=== PATIENT | female | born 1945 | race Asian ===

== ENCOUNTER 2021-02-20 19:21 | Inpatient (IN) | payer OTHER, SELFPAY ==
[~2021-02-20] VITALS: Ht 149.9 cm; Wt 44.6 kg
[2021-02-20 19:25] VITALS: BP_SYST 128
[2021-02-20 20:25] LABS: BASOPHILS % (AUTO) 0.9 % (0.0-2.0); EOSINOPHILS # (AUTO) 0.3 K/uL (0.0-0.4); EOSINOPHILS % (AUTO) 7.4 % (0.0-4.0); HEMOGLOBIN 11.6 g/dL (12.0-16.0); LYMPHOCYTES # (AUTO) 0.7 K/uL (1.0-5.5); LYMPHOCYTES % (AUTO) 16.5 % (20.5-51.5); MEAN CORPUSCULAR HEMOGLOBIN 31 pg (27-31); MEAN CORPUSCULAR HGB CONC 35 % (32-36); MEAN CORPUSCULAR VOLUME 87 fL (79.0-98.0); MONOCYTES # (AUTO) 0.5 K/uL (0.0-1.0); MONOCYTES % (AUTO) 12.4 % (1.7-9.3); NEUTROPHILS # (AUTO) 2.6 K/uL (1.8-7.7); NEUTROPHILS % (AUTO) 62.8 % (40.0-70.0); PLATELET COUNT (AUTO) 360 K/uL (130-430); RED BLOOD CELL COUNT(AUTO) 3.79 MIL/uL (4.2-6.2); RED CELL DISTRIBUTION WIDTH 12.8 % (9.0-15.0); WHITE BLOOD COUNT (AUTO) 4.2 K/uL (4.8-10.8)
[2021-02-20 20:36] LABS: ANION GAP 10 (5-15); CALCIUM 9.9 mg/dL (8.4-11.0); CHLORIDE 93 mmol/L (98-107); CREATININE 0.66 mg/dL (0.55-1.30); GLUCOSE 111 mg/dL (70-99); POTASSIUM 3.6 mmol/L (3.5-5.1); SODIUM SERUM 125 mmol/L (136-145); UREA NITROGEN, BLOOD 20 mg/dL (8-21)
[2021-02-20 20:41] LABS: ALANINE AMINOTRANSFERASE 31 U/L (12-78); ASPARTATE AMINOTRANSFERASE 24 U/L (10-37); TOTAL BILIRUBIN 0.2 mg/dL (0.0-1.0)
[2021-02-20] MEDS ORDERED: FENO134C PO (20:51)
[2021-02-20] MEDS ORDERED: ALEN70TA27 PO (20:51)
[2021-02-20] MEDS ORDERED: TELM80TA2 PO (20:51)
[2021-02-20] MEDS ORDERED: XALEYE BOTH EYES (20:51)
[2021-02-20] MEDS ORDERED: HYDR12.55 PO (20:51)
[2021-02-20] MEDS ORDERED: NIFE-2 PO ×2 (20:51)
[2021-02-20] MEDS ORDERED: BRIN10DR BOTH EYES (20:51)
[2021-02-20] MEDS ORDERED: ASPI-1393 PO (20:51)
[2021-02-20] MEDS ORDERED: LIP20 PO (20:51)
[2021-02-20] MEDS ORDERED: METO25CA PO (20:51)
[2021-02-20] MEDS ORDERED: ALENDRONATE SODIUM 70 MG TABLET (FOSAMAX) PO SCH (22:45)
[2021-02-20] MEDS ORDERED: NITROGLYCERIN 0.4 MG TAB.SUBL SL PRN (23:00)
[2021-02-20] MEDS ORDERED: ENOXAPARIN SODIUM 40 MG/0.4 ML SYRINGE SUBCUT ONE (23:00)
[2021-02-20] MEDS ORDERED: NIFEdipine 30 MG TAB.ER.24 PO ONE (23:00)
[2021-02-21] VITALS (7 sets, daily range): BP systolic 131–164
[2021-02-21] MEDS ORDERED: FENOFIBRATE MICRONIZED PO SCH (09:00)
[2021-02-21] MEDS: DORZOLAMIDE 2% OPHTHALMIC SOLN 5ML OP SCH ×2 (09:04→20:58)
[2021-02-21] MEDS: ASPIRIN 81 MG TABLET(ECOTRIN) PO SCH (09:05)
[2021-02-21] MEDS: NIFEdipine 30 MG TAB.ER.24 PO SCH ×2 (09:05→20:54)
[2021-02-21] MEDS: METOPROLOL SUCCINATE 25 MG TAB.SR.24H (TOPROL XL) PO SCH (09:06)
[2021-02-21] MEDS: LOSARTAN POTASSIUM 50 MG TABLET (COZAAR) PO SCH (09:07)
[2021-02-21] MEDS: ATORVASTATIN 20 MG TABLET PO SCH (20:53)
[2021-02-21] MEDS: ENOXAPARIN SODIUM 40 MG/0.4 ML SYRINGE SUBCUT SCH (20:55)
[2021-02-21] MEDS: LATANOPROST 2.5 ML DROPS (XALATAN) BOTH EYES SCH (20:58)
[2021-02-22] VITALS: BP_SYST 130
[2021-02-22 06:31] LABS: BASOPHILS % (AUTO) 0.9 % (0.0-2.0); EOSINOPHILS # (AUTO) 0.4 K/uL (0.0-0.4); EOSINOPHILS % (AUTO) 6.8 % (0.0-4.0); HEMATOCRIT 31.5 % (36-48); HEMOGLOBIN 10.7 g/dL (12.0-16.0); LYMPHOCYTES # (AUTO) 1.9 K/uL (1.0-5.5); LYMPHOCYTES % (AUTO) 34.5 % (20.5-51.5); MEAN CORPUSCULAR HEMOGLOBIN 30 pg (27-31); MEAN CORPUSCULAR HGB CONC 34 % (32-36); MEAN CORPUSCULAR VOLUME 88 fL (79.0-98.0); MONOCYTES # (AUTO) 0.8 K/uL (0.0-1.0); NEUTROPHILS # (AUTO) 2.4 K/uL (1.8-7.7); NEUTROPHILS % (AUTO) 42.8 % (40.0-70.0); PLATELET COUNT (AUTO) 354 K/uL (130-430); RED BLOOD CELL COUNT(AUTO) 3.59 MIL/uL (4.2-6.2); RED CELL DISTRIBUTION WIDTH 12.5 % (9.0-15.0); WHITE BLOOD COUNT (AUTO) 5.6 K/uL (4.8-10.8)
[2021-02-22 08:00] VITALS: BP_SYST 135
[2021-02-22 08:59] LABS: INR 0.9 (0.8-1.2); PROTHROMBIN TIME 10.1 SECS (9.5-12.5)
[2021-02-22] MEDS: NIFEdipine 30 MG TAB.ER.24 PO SCH ×2 (09:44→21:17)
[2021-02-22] MEDS: LOSARTAN POTASSIUM 50 MG TABLET (COZAAR) PO SCH (09:44)
[2021-02-22] MEDS: METOPROLOL SUCCINATE 25 MG TAB.SR.24H (TOPROL XL) PO SCH (09:45)
[2021-02-22] MEDS: ASPIRIN 81 MG TABLET(ECOTRIN) PO SCH (09:45)
[2021-02-22] MEDS: DORZOLAMIDE 2% OPHTHALMIC SOLN 5ML OP SCH ×2 (09:46→21:18)
[2021-02-22 09:58] LABS: ALANINE AMINOTRANSFERASE 28 U/L (12-78); ALBUMIN 3.4 g/dL (3.4-4.8); ANION GAP 13 (5-15); ASPARTATE AMINOTRANSFERASE 25 U/L (10-37); CALCIUM 8.8 mg/dL (8.4-11.0); CHLORIDE 100 mmol/L (98-107); CREATININE 0.74 mg/dL (0.55-1.30); GLUCOSE 83 mg/dL (70-99); POTASSIUM 4.1 mmol/L (3.5-5.1); SODIUM SERUM 131 mmol/L (136-145); TOTAL BILIRUBIN 0.2 mg/dL (0.0-1.0); UREA NITROGEN, BLOOD 19 mg/dL (8-21)
[2021-02-22 12:00] VITALS: BP_SYST 146
[2021-02-22 13:10] LABS: CHOLESTEROL 122 mg/dL (<200); HDL CHOLESTEROL 46 mg/dL (>55); LDL CHOLESTEROL 68 mg/dL (<100); TRIGLYCERIDES 77 mg/dL (30-150)
[2021-02-22 16:07] VITALS: BP_SYST 138
[2021-02-22 20:00] VITALS: BP_SYST 137
[2021-02-22] MEDS: ENOXAPARIN SODIUM 40 MG/0.4 ML SYRINGE SUBCUT SCH (21:13)
[2021-02-22] MEDS: ATORVASTATIN 20 MG TABLET PO SCH (21:17)
[2021-02-22] MEDS: LATANOPROST 2.5 ML DROPS (XALATAN) BOTH EYES SCH (21:18)
[2021-02-23 00:45] VITALS: BP_SYST 122
[2021-02-23 06:43] LABS: ANION GAP 11 (5-15); CHLORIDE 101 mmol/L (98-107); CREATININE 0.73 mg/dL (0.55-1.30); GLUCOSE 86 mg/dL (70-99); POTASSIUM 4.3 mmol/L (3.5-5.1); SODIUM SERUM 132 mmol/L (136-145); UREA NITROGEN, BLOOD 24 mg/dL (8-21)
[2021-02-23 06:48] LABS: BASOPHILS # (AUTO) 0.1 K/uL (0.0-0.2); BASOPHILS % (AUTO) 1.2 % (0.0-2.0); EOSINOPHILS # (AUTO) 0.4 K/uL (0.0-0.4); EOSINOPHILS % (AUTO) 6.6 % (0.0-4.0); HEMATOCRIT 32.5 % (36-48); HEMOGLOBIN 11.2 g/dL (12.0-16.0); LYMPHOCYTES # (AUTO) 2.3 K/uL (1.0-5.5); LYMPHOCYTES % (AUTO) 36.3 % (20.5-51.5); MEAN CORPUSCULAR HEMOGLOBIN 30 pg (27-31); MEAN CORPUSCULAR HGB CONC 34 % (32-36); MEAN CORPUSCULAR VOLUME 88 fL (79.0-98.0); MONOCYTES # (AUTO) 0.8 K/uL (0.0-1.0); NEUTROPHILS # (AUTO) 2.7 K/uL (1.8-7.7); NEUTROPHILS % (AUTO) 42.9 % (40.0-70.0); PLATELET COUNT (AUTO) 400 K/uL (130-430); RED CELL DISTRIBUTION WIDTH 12.9 % (9.0-15.0); WHITE BLOOD COUNT (AUTO) 6.2 K/uL (4.8-10.8)
[2021-02-23 07:50] VITALS: BP_SYST 129
[2021-02-23] MEDS: LOSARTAN POTASSIUM 50 MG TABLET (COZAAR) PO SCH (08:39)
[2021-02-23] MEDS: ASPIRIN 81 MG TABLET(ECOTRIN) PO SCH (08:40)
[2021-02-23] MEDS: NIFEdipine 30 MG TAB.ER.24 PO SCH (08:41)
[2021-02-23] MEDS: METOPROLOL SUCCINATE 25 MG TAB.SR.24H (TOPROL XL) PO SCH (08:42)
[2021-02-23] MEDS: DORZOLAMIDE 2% OPHTHALMIC SOLN 5ML OP SCH (08:43)
[2021-02-23 15:55] VITALS: BP_SYST 154
== END 2021-02-23 16:45 | disposition home or self-care (01) | DRG 206 ==
LOC: SED 19:21 → STU 21:55
PROVIDERS: ADMIT Family Medicine; ATTEND Family Medicine
DX: M94.0 Chondrocostal junction syndrome [Tietze] (principal); E87.1 Hypo-osmolality and hyponatremia; E78.5 Hyperlipidemia, unspecified; I10 Essential (primary) hypertension; Z20.822 Contact with and (suspected) exposure to COVID-19; Z90.49 Acquired absence of other specified parts of digestive tract; Z79.82 Long term (current) use of aspirin; Z79.899 Other long term (current) drug therapy
CPT/HCPCS: 36415; 71045; 80048; 80053; 80061; 84484; 85025; 85379; 85610-TC; 93005; 93306; 96372; 99285; G0378; J1650